=== PATIENT | male | born 1965 | race Caucasian/White ===

== ENCOUNTER 2019-06-15 16:47 | Emergency (ER) | payer MEDICAID ==
[~2019-06-15] VITALS: Ht 182.9 cm; Wt 80.0 kg
[2019-06-15] MEDS ORDERED: LISI-604 PO (18:04)
[2019-06-15] MEDS ORDERED: TRAM150C25 MT (18:04)
[2019-06-15] MEDS ORDERED: KEPP500 PO (18:04)
[2019-06-16] MEDS ORDERED: HALOPERIDOL LACTATE 5MG/ML VIAL IM ONE (00:30)
[2019-06-16 06:03] VITALS: BP 145/85
== END 2019-06-16 07:03 | disposition home or self-care (01) ==
LOC: ER 16:47
DX: F10.229 Alcohol dependence with intoxication, unspecified (principal); G40.909 Epilepsy, unspecified, not intractable, without status epilepticus; I10 Essential (primary) hypertension; Y90.8 Blood alcohol level of 240 mg/100 ml or more; W07.XXXA Fall from chair, initial encounter; Y93.89 Activity, other specified; Y92.89 Other specified places as the place of occurrence of the external cause; Y99.8 Other external cause status
CPT/HCPCS: 36415; 80320; 96372; 99283; J1630; G0480

== ENCOUNTER 2019-06-16 09:58 | Emergency (ER) | payer MEDICAID ==
[~2019-06-16] VITALS: Ht 175.3 cm; Wt 90.0 kg
[~2019-06-16 09:58] MED LIST: KEPP500 PO; LISI-604 PO; TRAM150C25 MT
[2019-06-16] MEDS ORDERED: SODIUM CHLORIDE 0.9% 1,000 ML IV ONE (12:33)
[2019-06-16 13:08] LABS: BASOPHILS % 1.4 % (0.0-2.0); EOSINOPHILS % 0.2 % (0.0-5.0); HEMATOCRIT. 37.5 % (42.0-52.0); HEMOGLOBIN. 12.2 g/dL (14.0-18.0); LYMPHOCYTES % 24.7 % (20.0-50.0); MEAN CORPUSCULAR HEMOGLOBIN 28.1 pg (28.0-32.0); MEAN CORPUSCULAR VOLUME 86.7 fL (80.0-94.0); MEAN PLATELET VOLUME 7.3 fl (7.4-10.4); MONOCYTES % 7.6 % (2.0-8.0); NEUTROPHILS % 66.1 % (40.0-76.0); PLATELET 222 x1000/uL (130-400); RED BLOOD CELL COUNT 4.32 mill/uL (4.7-6.1); RED CELL DISTRIBUTION WIDTH 17.7 % (11.6-14.6)
[2019-06-16 13:15] LABS: CHLORIDE 106 mEq/L (98-107)
[2019-06-16 13:34] LABS: ETHANOL BLOOD 464 mg/dL
[2019-06-16 16:17] LABS: *AMPHETAMINES SCREEN URINE NEGATIVE (NEGATIVE); *BARBITURATES SCREEN URINE NEGATIVE (NEGATIVE); *BENZODIAZEPINES SCREEN URINE PRESUMTIVE POSITIVE (NEGATIVE); *COCAINE SCREEN URINE NEGATIVE (NEGATIVE); METHADONE URINE SCREEN NEGATIVE (NEGATIVE)
[2019-06-16 16:18] LABS: CANNABINOID URINE SCREEN NEGATIVE (NEGATIVE); OPIATES URINE SCREEN NEGATIVE (NEGATIVE); PHENCYCLIDINE URINE SCREEN NEGATIVE (NEGATIVE)
[2019-06-17 06:27] VITALS: BP 132/81
== END 2019-06-17 06:30 | disposition home or self-care (01) ==
LOC: ER 09:58
DX: F10.229 Alcohol dependence with intoxication, unspecified (principal); Y90.8 Blood alcohol level of 240 mg/100 ml or more; Z79.899 Other long term (current) drug therapy
CPT/HCPCS: 36415; 70450; 80053; 80305; 80320; 85025; 96360; 96361; 99284; J7030; G0480

== ENCOUNTER 2019-08-15 21:21 | Emergency (ER) | payer MEDICAID ==
[~2019-08-15] VITALS: Ht 177.8 cm; Wt 77.0 kg
[2019-08-15] MEDS ORDERED: LORAZEPAM 2MG/ML CPJ IV ONE (23:15)
[2019-08-15] MEDS ORDERED: FOLIC ACID 1 MG, THIAMINE HCL 100 MG, MVI, ADULT NO.1 10 ML in DEXTROSE 5% WATER 1,000 ML IV ONE ×4 (23:15)
[2019-08-15] MEDS: LEVETIRACETAM 500MG PREMIX 100 ML IV ONE ×2 (23:25→23:36)
[2019-08-15] MEDS: ONDANSETRON HCL 4MG/2ML INJ IV STA ×2 (23:25→23:36)
[2019-08-15] MEDS: LORAZEPAM 2MG/ML CPJ IV STA ×2 (23:25→23:36)
[2019-08-15] MEDS: SODIUM CHLORIDE 0.9% 1,000 ML IV ONE ×2 (23:26→23:36)
[2019-08-15 23:52] LABS: BASOPHILS % 1.8 % (0.0-2.0); EOSINOPHILS % 1.6 % (0.0-5.0); HEMATOCRIT. 39.5 % (42.0-52.0); HEMOGLOBIN. 12.2 g/dL (14.0-18.0); LYMPHOCYTES % 48.7 % (20.0-50.0); MEAN CORPUSCULAR VOLUME 83.9 fL (80.0-94.0); MEAN PLATELET VOLUME 7.8 fl (7.4-10.4); MONOCYTES % 14.5 % (2.0-8.0); NEUTROPHILS % 33.4 % (40.0-76.0); PLATELET 208 x1000/uL (130-400); RED BLOOD CELL COUNT 4.71 mill/uL (4.7-6.1)
[2019-08-15 23:54] LABS: CHLORIDE 109 mEq/L (98-107)
[2019-08-16 00:03] LABS: CREATINE KINASE 379 IU/L (39-308)
[2019-08-16 00:20] LABS: ETHANOL BLOOD 505 mg/dL
[2019-08-16 01:43] LABS: *AMPHETAMINES SCREEN URINE NEGATIVE (NEGATIVE); *BARBITURATES SCREEN URINE NEGATIVE (NEGATIVE); *BENZODIAZEPINES SCREEN URINE PRESUMTIVE POSITIVE (NEGATIVE); *COCAINE SCREEN URINE NEGATIVE (NEGATIVE)
[2019-08-16 01:44] LABS: CANNABINOID URINE SCREEN NEGATIVE (NEGATIVE); METHADONE URINE SCREEN NEGATIVE (NEGATIVE); OPIATES URINE SCREEN NEGATIVE (NEGATIVE); PHENCYCLIDINE URINE SCREEN NEGATIVE (NEGATIVE)
[2019-08-16 02:10] LABS: CLARITY URINE CLEAR (CLEAR); COLOR URINE YELLOW (YELLOW); KETONES URINE NEGATIVE (NEGATIVE); LEUKOCYTE ESTERASE URINE 1+ (NEGATIVE); NITRITE URINE NEGATIVE (NEGATIVE); OCCULT BLOOD URINE 1+ (NEGATIVE); PH URINE 7.5 (4.5-8.0); PROTEIN URINE NEGATIVE (NEGATIVE); SPECIFIC GRAVITY URINE 1.004 (1.005-1.030); UROBILINOGEN URINE 0.2 E.U./dL (0.2-1.0)
[2019-08-16 12:02] VITALS: BP 139/87
== END 2019-08-16 12:03 | disposition home or self-care (01) ==
LOC: ER 21:21
DX: T51.0X1A Toxic effect of ethanol, accidental (unintentional), initial encounter (principal); G92 Toxic encephalopathy; Y92.89 Other specified places as the place of occurrence of the external cause; Z91.19 Patient's noncompliance with other medical treatment and regimen; I10 Essential (primary) hypertension; Z98.890 Other specified postprocedural states; Z79.899 Other long term (current) drug therapy
CPT/HCPCS: 36415; 80053; 80305; 80307; 80320; 80329; 81003; 82550; 84443; 85025; 93005; 96365; 96366; 96367; 96375; 99284; J1953; J2060; J2405; J3411; J3490; J7030; J7070; G0480

== ENCOUNTER 2019-08-16 20:23 | Inpatient (IN) | payer MEDICAID ==
[~2019-08-16] VITALS: Ht 172.7 cm; Wt 75.4 kg
[2019-08-16] MEDS ORDERED: SODIUM CHLORIDE 0.9% 1,000 ML IV ONE (22:20)
[2019-08-17 00:52] LABS: BASOPHILS % 3.2 % (0.0-2.0); EOSINOPHILS % 1.8 % (0.0-5.0); LYMPHOCYTES % 43.8 % (20.0-50.0); MEAN CORPUSCULAR HEMOGLOBIN 26.2 pg (28.0-32.0); MEAN CORPUSCULAR VOLUME 83.4 fL (80.0-94.0); MEAN PLATELET VOLUME 7.4 fl (7.4-10.4); MONOCYTES % 9.7 % (2.0-8.0); NEUTROPHILS % 41.5 % (40.0-76.0); PLATELET 172 x1000/uL (130-400); RED BLOOD CELL COUNT 4.19 mill/uL (4.7-6.1); RED CELL DISTRIBUTION WIDTH 20.6 % (11.6-14.6)
[2019-08-17 01:03] LABS: CHLORIDE 111 mEq/L (98-107)
[2019-08-17 01:24] LABS: ETHANOL BLOOD 393 mg/dL
[2019-08-17 03:12] LABS: CLARITY URINE CLEAR (CLEAR); COLOR URINE YELLOW (YELLOW); KETONES URINE NEGATIVE (NEGATIVE); LEUKOCYTE ESTERASE URINE 3+ (NEGATIVE); NITRITE URINE NEGATIVE (NEGATIVE); OCCULT BLOOD URINE 2+ (NEGATIVE); PROTEIN URINE TRACE (NEGATIVE); SPECIFIC GRAVITY URINE 1.007 (1.005-1.030); UROBILINOGEN URINE 0.2 E.U./dL (0.2-1.0)
[2019-08-17 03:43] LABS: *AMPHETAMINES SCREEN URINE NEGATIVE (NEGATIVE); *BARBITURATES SCREEN URINE NEGATIVE (NEGATIVE); *BENZODIAZEPINES SCREEN URINE PRESUMTIVE POSITIVE (NEGATIVE); *COCAINE SCREEN URINE NEGATIVE (NEGATIVE)
[2019-08-17 03:44] LABS: CANNABINOID URINE SCREEN NEGATIVE (NEGATIVE); METHADONE URINE SCREEN NEGATIVE (NEGATIVE); OPIATES URINE SCREEN NEGATIVE (NEGATIVE); PHENCYCLIDINE URINE SCREEN NEGATIVE (NEGATIVE)
[2019-08-17] MEDS ORDERED: SODIUM CHLORIDE 0.9% 1,000 ML IV ONE (04:04)
[2019-08-17] MEDS ORDERED: CHLORDIAZEPOXIDE 25MG CAPSULE PO ONE ×2 (08:15→11:45)
[2019-08-17] MEDS ORDERED: LORAZEPAM 1MG TABLET PO ONE (08:15)
[2019-08-17] MEDS ORDERED: FOLIC ACID 1 MG, THIAMINE HCL 100 MG, MVI, ADULT NO.1 10 ML in DEXTROSE 5% WATER 1,000 ML IV ONE ×4 (10:15)
[2019-08-17] MEDS ORDERED: LORAZEPAM 2MG/ML CPJ IV ONE ×2 (10:15→11:15)
[2019-08-17] MEDS ORDERED: LORAZEPAM 2MG/ML CPJ IM ONE (11:30)
[2019-08-17] MEDS ORDERED: CEFTRIAXONE 1 G PREMIX 50 ML IV ONE (12:00)
[2019-08-17] MEDS ORDERED: POTASSIUM CHLORIDE 20MEQ TABLET SR PO ONE (12:00)
[2019-08-17] MEDS ORDERED: ONDANSETRON HCL 4MG/2ML INJ IV ONE (12:45)
[2019-08-17] MEDS ORDERED: CLONIDINE 0.1MG TABLET PO PRN (19:00)
[2019-08-17] MEDS ORDERED: MAGNESIUM/ALUMINUM HYDROXIDE/SIMETHICONE 30ML UDC PO PRN (19:00)
[2019-08-17] MEDS ORDERED: DOCUSATE SODIUM 100MG CAPSULE PO PRN (19:00)
[2019-08-17] MEDS: LORAZEPAM 2MG/ML CPJ IV PRN (20:21)
[2019-08-17] MEDS: ONDANSETRON HCL 4MG/2ML INJ IV PRN (20:21)
[2019-08-18 04:00] VITALS: BP 145/90
[2019-08-18] MEDS: SODIUM CHLORIDE 0.45% 1,000 ML IV SCH ×2 (04:40→21:02)
[2019-08-18] MEDS: ONDANSETRON HCL 4MG/2ML INJ IV PRN ×3 (04:41→19:44)
[2019-08-18] MEDS: LORAZEPAM 2MG/ML CPJ IV PRN ×3 (04:42→19:44)
[2019-08-18] MEDS ORDERED: GABA-531 MT (06:11)
[2019-08-18] MEDS ORDERED: ATEN50TA MT (06:12)
[2019-08-18] MEDS: CHLORDIAZEPOXIDE 25MG CAPSULE PO SCH ×3 (07:33→21:01)
[2019-08-18] MEDS: MULTIVITAMINS,THER W-MINERALS TABLET PO SCH (09:31)
[2019-08-18] MEDS: THIAMINE HCL 100MG TABLET PO SCH (09:31)
[2019-08-18 09:35] LABS: HEMATOCRIT. 34.8 % (42.0-52.0); HEMOGLOBIN. 11.2 g/dL (14.0-18.0); MEAN CORPUSCULAR HEMOGLOBIN 26.7 pg (28.0-32.0); MEAN CORPUSCULAR VOLUME 82.4 fL (80.0-94.0); PLATELET 134 x1000/uL (130-400); RED BLOOD CELL COUNT 4.22 mill/uL (4.7-6.1); RED CELL DISTRIBUTION WIDTH 20.1 % (11.6-14.6)
[2019-08-18 10:33] LABS: CHLORIDE 104 mEq/L (98-107)
[2019-08-18 12:12] LABS: PLATELET ESTIMATE NORMAL
[2019-08-18 12:20] VITALS: BP 129/83
[2019-08-18] MEDS ORDERED: POTASSIUM CHLORIDE 20MEQ TABLET SR PO NR (12:45)
[2019-08-18] MEDS: NITROFURANTOIN 100MG M/M CAPSULE PO SCH ×2 (13:03→21:02)
[2019-08-18] MEDS: ATENOLOL 50 MG TABLET PO SCH ×2 (13:04→21:02)
[2019-08-18] MEDS: GABAPENTIN 300MG CAPSULE PO SCH ×2 (13:04→21:01)
[2019-08-18] MEDS: ACETAMINOPHEN 325MG TABLET PO PRN (15:27)
[2019-08-18 16:00] VITALS: BP 153/100
[2019-08-18 20:09] VITALS: BP 133/96
[2019-08-18] MEDS: LEVETIRACETAM 500MG TABLET PO SCH (21:01)
[2019-08-19 00:31] VITALS: BP 140/91
[2019-08-19 04:00] VITALS: BP 138/62
[2019-08-19] MEDS: GABAPENTIN 300MG CAPSULE PO SCH ×3 (06:33→21:07)
[2019-08-19] MEDS: CHLORDIAZEPOXIDE 25MG CAPSULE PO SCH ×3 (06:33→21:08)
[2019-08-19 08:00] VITALS: BP 118/86
[2019-08-19] MEDS: NITROFURANTOIN 100MG M/M CAPSULE PO SCH ×2 (08:40→21:07)
[2019-08-19] MEDS: ATENOLOL 50 MG TABLET PO SCH ×2 (08:40→21:08)
[2019-08-19] MEDS: THIAMINE HCL 100MG TABLET PO SCH (08:40)
[2019-08-19] MEDS: LEVETIRACETAM 500MG TABLET PO SCH ×2 (08:40→21:07)
[2019-08-19] MEDS: MULTIVITAMINS,THER W-MINERALS TABLET PO SCH (08:40)
[2019-08-19] MEDS: ACETAMINOPHEN 325MG TABLET PO PRN ×2 (10:11→16:28)
[2019-08-19] MEDS ORDERED: KETOROLAC 15MG/ML VIAL IV PRN (11:00)
[2019-08-19] MEDS: LORAZEPAM 2MG/ML CPJ IV PRN ×3 (13:14→22:04)
[2019-08-19] MEDS: ONDANSETRON HCL 4MG/2ML INJ IV PRN ×2 (13:14→22:10)
[2019-08-19] MEDS: SODIUM CHLORIDE 0.45% 1,000 ML IV SCH (15:45)
[2019-08-19 16:00] VITALS: BP 132/86
[2019-08-19 20:00] VITALS: BP 125/80
[2019-08-19] MEDS: ZOLPIDEM TARTRATE 5MG TABLET PO PRN (21:08)
[2019-08-20] VITALS: BP 144/86
[2019-08-20] MEDS: LORAZEPAM 2MG/ML CPJ IV PRN ×4 (02:07→22:12)
[2019-08-20 04:00] VITALS: BP 110/70
[2019-08-20] MEDS: SODIUM CHLORIDE 0.45% 1,000 ML IV SCH ×2 (06:26→23:22)
[2019-08-20] MEDS: CHLORDIAZEPOXIDE 25MG CAPSULE PO SCH ×3 (06:27→21:20)
[2019-08-20] MEDS: GABAPENTIN 300MG CAPSULE PO SCH ×3 (06:27→21:20)
[2019-08-20 08:13] VITALS: BP 125/85
[2019-08-20] MEDS: MULTIVITAMINS,THER W-MINERALS TABLET PO SCH (08:59)
[2019-08-20] MEDS: THIAMINE HCL 100MG TABLET PO SCH (08:59)
[2019-08-20] MEDS: NITROFURANTOIN 100MG M/M CAPSULE PO SCH ×2 (08:59→21:20)
[2019-08-20] MEDS: LEVETIRACETAM 500MG TABLET PO SCH ×2 (08:59→21:20)
[2019-08-20] MEDS: ATENOLOL 50 MG TABLET PO SCH ×2 (09:00→21:20)
[2019-08-20 10:40] LABS: BASOPHILS % 2.1 % (0.0-2.0); EOSINOPHILS % 3.6 % (0.0-5.0); HEMATOCRIT. 35.1 % (42.0-52.0); HEMOGLOBIN. 11.6 g/dL (14.0-18.0); LYMPHOCYTES % 27.6 % (20.0-50.0); MEAN CORPUSCULAR HEMOGLOBIN 27.7 pg (28.0-32.0); MEAN CORPUSCULAR VOLUME 83.5 fL (80.0-94.0); MEAN PLATELET VOLUME 8.2 fl (7.4-10.4); MONOCYTES % 13.8 % (2.0-8.0); NEUTROPHILS % 52.9 % (40.0-76.0); PLATELET 129 x1000/uL (130-400); RED BLOOD CELL COUNT 4.21 mill/uL (4.7-6.1); RED CELL DISTRIBUTION WIDTH 19.8 % (11.6-14.6)
[2019-08-20 10:48] LABS: CHLORIDE 105 mEq/L (98-107)
[2019-08-20 12:00] VITALS: BP 124/80
[2019-08-20 16:00] VITALS: BP 130/78
[2019-08-20 20:00] VITALS: BP 124/81
[2019-08-20] MEDS: ACETAMINOPHEN 325MG TABLET PO PRN (21:23)
[2019-08-20] MEDS: ONDANSETRON HCL 4MG/2ML INJ IV PRN (22:12)
[2019-08-20] MEDS: ZOLPIDEM TARTRATE 5MG TABLET PO PRN (23:21)
[2019-08-21] VITALS: BP 108/76
[2019-08-21 04:00] VITALS: BP 108/78
[2019-08-21] MEDS: GABAPENTIN 300MG CAPSULE PO SCH ×3 (06:01→21:18)
[2019-08-21] MEDS: CHLORDIAZEPOXIDE 25MG CAPSULE PO SCH ×3 (06:01→21:18)
[2019-08-21] MEDS: ACETAMINOPHEN 325MG TABLET PO PRN ×2 (06:01→17:03)
[2019-08-21 08:00] VITALS: BP 124/76
[2019-08-21] MEDS: NITROFURANTOIN 100MG M/M CAPSULE PO SCH ×2 (09:28→21:18)
[2019-08-21] MEDS: THIAMINE HCL 100MG TABLET PO SCH (09:29)
[2019-08-21] MEDS: LEVETIRACETAM 500MG TABLET PO SCH ×2 (09:29→21:18)
[2019-08-21] MEDS: ATENOLOL 50 MG TABLET PO SCH ×2 (09:30→21:19)
[2019-08-21] MEDS: MULTIVITAMINS,THER W-MINERALS TABLET PO SCH (09:30)
[2019-08-21] MEDS: LORAZEPAM 2MG/ML CPJ IV PRN ×3 (09:30→21:19)
[2019-08-21] MEDS: ONDANSETRON HCL 4MG/2ML INJ IV PRN ×3 (09:53→23:44)
[2019-08-21 12:00] VITALS: BP 132/79
[2019-08-21 16:00] VITALS: BP 113/65
[2019-08-21] MEDS: SODIUM CHLORIDE 0.45% 1,000 ML IV SCH (16:49)
[2019-08-21 20:00] VITALS: BP 139/80
[2019-08-22] VITALS: BP 155/91
[2019-08-22] MEDS: ZOLPIDEM TARTRATE 5MG TABLET PO PRN (02:37)
[2019-08-22 04:00] VITALS: BP 106/62
[2019-08-22] MEDS: CHLORDIAZEPOXIDE 25MG CAPSULE PO SCH (07:01)
[2019-08-22] MEDS: GABAPENTIN 300MG CAPSULE PO SCH (07:01)
[2019-08-22] MEDS: SODIUM CHLORIDE 0.45% 1,000 ML IV SCH (07:01)
[2019-08-22] MEDS: LORAZEPAM 2MG/ML CPJ IV PRN (07:02)
[2019-08-22] MEDS: ACETAMINOPHEN 325MG TABLET PO PRN (08:46)
[2019-08-22 08:51] VITALS: BP 123/85
[2019-08-22] MEDS: THIAMINE HCL 100MG TABLET PO SCH (09:03)
[2019-08-22] MEDS: NITROFURANTOIN 100MG M/M CAPSULE PO SCH (09:03)
[2019-08-22] MEDS: MULTIVITAMINS,THER W-MINERALS TABLET PO SCH (09:03)
[2019-08-22] MEDS: ATENOLOL 50 MG TABLET PO SCH (09:04)
[2019-08-22] MEDS: LEVETIRACETAM 500MG TABLET PO SCH (09:06)
[2019-08-22] MEDS: ONDANSETRON HCL 4MG/2ML INJ IV PRN (09:21)
[2019-08-22 10:29] VITALS: BP 123/85
== END 2019-08-22 12:30 | disposition home or self-care (01) | DRG 775 ==
LOC: ER 20:23 → 6WST 08-17 11:42 → CANRESERV 08-17 22:18 → ENRESERV 08-17 22:18
PROVIDERS: ADMIT Hospitalist; ATTEND Hospitalist
DX: F10.239 Alcohol dependence with withdrawal, unspecified (principal); E83.51 Hypocalcemia; G40.909 Epilepsy, unspecified, not intractable, without status epilepticus; I10 Essential (primary) hypertension; Y90.8 Blood alcohol level of 240 mg/100 ml or more; N39.0 Urinary tract infection, site not specified; Z59.0 Homelessness; Z79.899 Other long term (current) drug therapy
CPT/HCPCS: 36415; 80053; 80305; 80307; 80320; 80329; 81003; 85025; 93005; 93970; 97162; 99284; 99285; J0696; J2060; J2405; J3411; J3490; J7030; J7070; G0480

== ENCOUNTER 2022-01-05 19:47 | Emergency (ER) | payer MEDICAID, OTHER ==
[~2022-01-05] VITALS: Ht 172.7 cm; Wt 76.0 kg
[~2022-01-05 19:47] MED LIST changes: +ATEN50TA MT; +GABA-532 MT; -LISI-604 PO; +LISI20TA31 PO
[2022-01-05 20:40] VITALS: BP 139/99
[2022-01-05] MEDS ORDERED: GABA-533 MT (22:36)
[2022-01-05] MEDS ORDERED: IBUP-2029 MT (22:36)
[2022-01-05] MEDS ORDERED: GABAPENTIN 400MG CAPSULE PO ONE (22:45)
[2022-01-06] MEDS ORDERED: GABA-290 MT (12:41)
[2022-01-06] MEDS ORDERED: MENT4ADH6 TP (12:41)
== END 2022-01-06 00:01 | disposition home or self-care (01) ==
LOC: ER 19:58
DX: Z76.0 Encounter for issue of repeat prescription (principal); F10.20 Alcohol dependence, uncomplicated; R45.1 Restlessness and agitation; I10 Essential (primary) hypertension; Y90.9 Presence of alcohol in blood, level not specified
CPT/HCPCS: 99283

== ENCOUNTER 2022-01-06 03:00 | Emergency (ER) | payer OTHER ==
[~2022-01-06 03:00] MED LIST changes: +GABA-533 MT; +IBUP-2029 MT
[2022-01-06] MEDS ORDERED: GABA-290 MT (12:41)
[2022-01-06] MEDS ORDERED: MENT4ADH6 TP (12:41)
== END 2022-01-06 03:20 | disposition left against medical advice (07) ==
LOC: ER 03:00
DX: Z53.21 Procedure and treatment not carried out due to patient leaving prior to being seen by health care provider (principal)

== ENCOUNTER 2022-01-06 12:08 | Emergency (ER) | payer OTHER ==
[~2022-01-06] VITALS: Ht 167.6 cm; Wt 75.0 kg
[2022-01-06] MEDS ORDERED: GABA-290 MT (12:41)
[2022-01-06] MEDS ORDERED: MENT4ADH6 TP (12:41)
[2022-01-06 12:57] VITALS: BP 134/81
== END 2022-01-06 13:00 | disposition home or self-care (01) ==
LOC: ER 12:08
DX: G62.9 Polyneuropathy, unspecified (principal); F10.20 Alcohol dependence, uncomplicated; I10 Essential (primary) hypertension; Z76.0 Encounter for issue of repeat prescription; Z86.59 Personal history of other mental and behavioral disorders; Y90.9 Presence of alcohol in blood, level not specified
CPT/HCPCS: 99281; 99283

== ENCOUNTER 2022-01-09 20:09 | Emergency (ER) | payer OTHER ==
[~2022-01-09] VITALS: Ht 177.8 cm; Wt 75.0 kg
[~2022-01-09 20:09] MED LIST changes: +GABA-290 MT; +MENT4ADH6 TP
[2022-01-10 01:50] VITALS: BP 144/78
[2022-01-10] MEDS ORDERED: CYCL5TAB MT (10:46)
[2022-01-10] MEDS ORDERED: KEPP500 PO (10:46)
[2022-01-10] MEDS ORDERED: L25 MT (10:46)
[2022-01-11] MEDS ORDERED: GABA-532 MT (12:16)
== END 2022-01-10 01:50 | disposition home or self-care (01) ==
LOC: ER 20:09
DX: F10.229 Alcohol dependence with intoxication, unspecified (principal); Y90.0 Blood alcohol level of less than 20 mg/100 ml; I10 Essential (primary) hypertension; Z79.899 Other long term (current) drug therapy
CPT/HCPCS: 99283

== ENCOUNTER 2022-01-10 09:15 | Emergency (ER) | payer OTHER ==
[~2022-01-10] VITALS: Ht 177.8 cm; Wt 75.0 kg
[2022-01-10] MEDS ORDERED: CYCL5TAB MT (10:46)
[2022-01-10] MEDS ORDERED: L25 MT (10:46)
[2022-01-10] MEDS ORDERED: KEPP500 PO (10:46)
[2022-01-10 15:29] VITALS: BP 128/89
[2022-01-11] MEDS ORDERED: GABA-532 MT (12:16)
== END 2022-01-10 15:31 | disposition home or self-care (01) ==
LOC: ER 09:52
DX: F10.229 Alcohol dependence with intoxication, unspecified (principal); Y90.0 Blood alcohol level of less than 20 mg/100 ml; I10 Essential (primary) hypertension; Z79.899 Other long term (current) drug therapy; Z59.00 Homelessness unspecified
CPT/HCPCS: 99283

== ENCOUNTER 2022-01-10 19:24 | Emergency (ER) | payer OTHER ==
[~2022-01-10] VITALS: Ht 177.8 cm; Wt 75.0 kg
[~2022-01-10 19:24] MED LIST changes: +CYCL5TAB MT; +L25 MT
[2022-01-10 21:19] VITALS: BP 151/104
[2022-01-11] MEDS ORDERED: GABA-532 MT (12:16)
== END 2022-01-10 22:34 | disposition left against medical advice (07) ==
LOC: ER 19:24
DX: Z53.21 Procedure and treatment not carried out due to patient leaving prior to being seen by health care provider (principal)
CPT/HCPCS: 99281

== ENCOUNTER 2022-01-11 10:10 | Emergency (ER) | payer OTHER ==
[~2022-01-11] VITALS: Ht 165.1 cm; Wt 59.0 kg
[2022-01-11 10:27] VITALS: BP 121/79
[2022-01-11] MEDS ORDERED: GABA-532 MT (12:16)
== END 2022-01-11 12:40 | disposition home or self-care (01) ==
LOC: ER 10:10
DX: Z76.0 Encounter for issue of repeat prescription (principal); M54.30 Sciatica, unspecified side; I10 Essential (primary) hypertension; G40.909 Epilepsy, unspecified, not intractable, without status epilepticus
CPT/HCPCS: 99283

== ENCOUNTER 2022-01-11 20:28 | Emergency (ER) | payer OTHER ==
[~2022-01-11] VITALS: Ht 175.3 cm; Wt 78.0 kg
[2022-01-11] MEDS ORDERED: IBUPROFEN 400MG TABLET PO ONE (23:00)
[2022-01-11] MEDS ORDERED: ONDANSETRON 4MG ODT PO ONE (23:00)
[2022-01-12 02:41] VITALS: BP 122/78
== END 2022-01-12 02:41 | disposition home or self-care (01) ==
LOC: ER 20:28
DX: F10.229 Alcohol dependence with intoxication, unspecified (principal); M54.50 Low back pain, unspecified; I10 Essential (primary) hypertension; M54.30 Sciatica, unspecified side; G40.909 Epilepsy, unspecified, not intractable, without status epilepticus; Y90.9 Presence of alcohol in blood, level not specified
CPT/HCPCS: 99283; Q0162

== ENCOUNTER 2022-01-22 05:39 | Emergency (ER) | payer OTHER ==
[~2022-01-22] VITALS: Ht 170.2 cm; Wt 82.0 kg
[2022-01-22 05:41] VITALS: BP 152/84
[2022-01-22] MEDS ORDERED: CHLORDIAZEPOXIDE 25MG CAPSULE PO ONE (06:00)
[2022-01-22] MEDS ORDERED: ONDANSETRON HCL 4MG TABLET PO ONE (06:15)
[2022-01-22] MEDS ORDERED: ONDA4TAB50 PO (06:16)
== END 2022-01-22 06:46 | disposition home or self-care (01) ==
LOC: ER 05:39
DX: F10.239 Alcohol dependence with withdrawal, unspecified (principal); Y90.9 Presence of alcohol in blood, level not specified; T68.XXXA Hypothermia, initial encounter; I10 Essential (primary) hypertension; X58.XXXA Exposure to other specified factors, initial encounter; Y93.9 Activity, unspecified; Y92.521 Bus station as the place of occurrence of the external cause
CPT/HCPCS: 99283; Q0162

== ENCOUNTER 2022-01-22 13:32 | Emergency (ER) | payer OTHER ==
[~2022-01-22] VITALS: Ht 175.3 cm; Wt 80.0 kg
[~2022-01-22 13:32] MED LIST changes: +ONDA4TAB50 PO
[2022-01-22 16:16] LABS: CHLORIDE 107 mEq/L (98-107)
[2022-01-22 16:32] LABS: ETHANOL BLOOD 300 mg/dL
[2022-01-22] MEDS ORDERED: CHLORDIAZEPOXIDE 25MG CAPSULE PO ONE (17:15)
[2022-01-22 18:05] LABS: *AMPHETAMINES SCREEN URINE NEGATIVE (NEGATIVE); *BARBITURATES SCREEN URINE NEGATIVE (NEGATIVE); *BENZODIAZEPINES SCREEN URINE PRESUMTIVE POSITIVE (NEGATIVE); *COCAINE SCREEN URINE NEGATIVE (NEGATIVE); CANNABINOID URINE SCREEN NEGATIVE (NEGATIVE); METHADONE URINE SCREEN NEGATIVE (NEGATIVE); OPIATES URINE SCREEN NEGATIVE (NEGATIVE); PHENCYCLIDINE URINE SCREEN NEGATIVE (NEGATIVE)
[2022-01-22] MEDS ORDERED: CHLORDIAZEPOXIDE 25MG CAPSULE PO NR (18:30)
[2022-01-22 18:41] LABS: BASOPHILS % 2.8 % (0.0-2.0); EOSINOPHILS % 1.4 % (0.0-5.0); HEMATOCRIT. 40.5 % (42.0-52.0); HEMOGLOBIN. 13.5 g/dL (14.0-18.0); LYMPHOCYTES % 44.2 % (20.0-50.0); MEAN CORPUSCULAR HEMOGLOBIN 32.7 pg (28.0-32.0); MEAN CORPUSCULAR VOLUME 98.3 fL (80.0-94.0); MEAN PLATELET VOLUME 8.3 fl (7.4-10.4); MONOCYTES % 11.8 % (2.0-8.0); NEUTROPHILS % 39.8 % (40.0-76.0); PLATELET 109 x1000/uL (130-400); RED BLOOD CELL COUNT 4.12 mill/uL (4.7-6.1); RED CELL DISTRIBUTION WIDTH 13.7 % (11.6-14.6)
[2022-01-22 21:49] VITALS: BP 107/66
== END 2022-01-22 21:53 | disposition home or self-care (01) ==
LOC: ER 13:40
DX: T51.0X1A Toxic effect of ethanol, accidental (unintentional), initial encounter (principal); R41.82 Altered mental status, unspecified; Y92.480 Sidewalk as the place of occurrence of the external cause; F10.229 Alcohol dependence with intoxication, unspecified; Y90.8 Blood alcohol level of 240 mg/100 ml or more; I10 Essential (primary) hypertension
CPT/HCPCS: 36415; 80053; 80305; 80320; 85025; 93005; 99284; G0480

== ENCOUNTER 2022-02-16 21:49 | Emergency (ER) | payer OTHER ==
[~2022-02-16] VITALS: Ht 175.3 cm; Wt 75.0 kg
[2022-02-17 02:58] VITALS: BP 102/66
== END 2022-02-17 03:57 | disposition home or self-care (01) ==
LOC: ER 21:49
DX: F10.229 Alcohol dependence with intoxication, unspecified (principal); Y90.9 Presence of alcohol in blood, level not specified
CPT/HCPCS: 99283

== ENCOUNTER 2022-03-21 11:57 | Emergency (ER) | payer OTHER ==
[~2022-03-21] VITALS: Ht 170.2 cm; Wt 90.0 kg
[2022-03-21 11:59] VITALS: BP 150/88
== END 2022-03-22 | disposition left against medical advice (07) ==
LOC: ER 12:39
DX: Z53.21 Procedure and treatment not carried out due to patient leaving prior to being seen by health care provider (principal)

== ENCOUNTER 2022-05-18 17:01 | Inpatient (IN) | payer OTHER ==
[~2022-05-18] VITALS: Ht 172.7 cm; Wt 70.3 kg
[2022-05-18] MEDS ORDERED: LORAZEPAM 2MG/ML CPJ IV STA (18:32)
[2022-05-18] MEDS ORDERED: FOLIC ACID 1 MG, THIAMINE HCL 100 MG, MVI, ADULT NO.1 10 ML in DEXTROSE 5% WATER 1,000 ML IV ONE ×4 (18:45)
[2022-05-18 19:19] LABS: BASOPHILS % 2.9 % (0.0-2.0); EOSINOPHILS % 1.3 % (0.0-5.0); HEMATOCRIT. 37.7 % (42.0-52.0); HEMOGLOBIN. 12.5 g/dL (14.0-18.0); LYMPHOCYTES % 45.4 % (20.0-50.0); MEAN CORPUSCULAR HEMOGLOBIN 31.7 pg (28.0-32.0); MEAN CORPUSCULAR VOLUME 95.8 fL (80.0-94.0); MEAN PLATELET VOLUME 7.6 fl (7.4-10.4); NEUTROPHILS % 36.4 % (40.0-76.0); PLATELET 119 x1000/uL (130-400); RED BLOOD CELL COUNT 3.93 mill/uL (4.7-6.1); RED CELL DISTRIBUTION WIDTH 14.5 % (11.6-14.6)
[2022-05-18 19:50] LABS: CHLORIDE 94 mEq/L (98-107)
[2022-05-18 19:52] LABS: ETHANOL BLOOD 454 mg/dL
[2022-05-19] VITALS (7 sets, daily range): BP systolic 114–149; BP diastolic 80–97
[2022-05-19] MEDS ORDERED: POTASSIUM CHLORIDE 20MEQ TABLET SR PO NR (01:45)
[2022-05-19] MEDS: LORAZEPAM 2MG/ML CPJ IM PRN ×4 (02:12→21:02)
[2022-05-19] MEDS ORDERED: NALOXONE HCL 0.4MG/ML VIAL IV PRN (02:15)
[2022-05-19] MEDS: GABAPENTIN 300MG CAPSULE PO SCH ×3 (06:26→21:02)
[2022-05-19 06:58] LABS: CHLORIDE 99 mEq/L (98-107)
[2022-05-19] MEDS: FOLIC ACID 1MG TABLET PO SCH (09:12)
[2022-05-19] MEDS: THIAMINE HCL 100MG TABLET PO SCH (09:12)
[2022-05-19] MEDS: MULTIVITAMINS,THER W-MINERALS TABLET PO SCH (09:12)
[2022-05-19] MEDS: LEVETIRACETAM 500MG/5ML CUP PO SCH ×2 (09:12→21:02)
[2022-05-19] MEDS: CHLORDIAZEPOXIDE 25MG CAPSULE PO SCH ×2 (09:12→16:52)
[2022-05-19] MEDS: ATENOLOL 25MG TABLET PO SCH ×2 (09:20→21:03)
[2022-05-19] MEDS ORDERED: MAGNESIUM/ALUMINUM HYDROXIDE/SIMETHICONE 30ML UDC PO PRN (10:00)
[2022-05-19] MEDS ORDERED: CLONIDINE 0.1MG TABLET PO PRN (10:00)
[2022-05-19] MEDS ORDERED: ACETAMINOPHEN 325MG TABLET PO PRN (10:00)
[2022-05-19] MEDS: ENOXAPARIN 40MG/0.4ML SYR SUBCUT SCH (11:41)
[2022-05-19] MEDS: ONDANSETRON HCL 4MG/2ML INJ IV PRN (15:29)
[2022-05-19] MEDS: HYDROCODONE/ACETAMINOPHEN 10/325MG TABLET PO PRN ×2 (16:52→21:03)
[2022-05-19] MEDS: LACTULOSE 20G/30ML UDC PO SCH (21:03)
[2022-05-20] VITALS: BP 147/76
[2022-05-20 04:00] VITALS: BP 152/87
[2022-05-20] MEDS: LORAZEPAM 2MG/ML CPJ IM PRN ×3 (05:01→17:22)
[2022-05-20] MEDS: HYDROCODONE/ACETAMINOPHEN 10/325MG TABLET PO PRN ×3 (05:01→18:15)
[2022-05-20] MEDS: GABAPENTIN 300MG CAPSULE PO SCH ×3 (05:01→21:00)
[2022-05-20] MEDS: LACTULOSE 20G/30ML UDC PO SCH ×3 (05:01→21:00)
[2022-05-20 06:41] LABS: HEMOGLOBIN. 12.5 g/dL (14.0-18.0); MEAN CORPUSCULAR HEMOGLOBIN 32.1 pg (28.0-32.0); MEAN CORPUSCULAR VOLUME 97.4 fL (80.0-94.0); MEAN PLATELET VOLUME 8.8 fl (7.4-10.4); PLATELET 110 x1000/uL (130-400); RED CELL DISTRIBUTION WIDTH 14.2 % (11.6-14.6)
[2022-05-20 07:48] LABS: CHLORIDE 97 mEq/L (98-107)
[2022-05-20 07:51] VITALS: BP 146/89
[2022-05-20 08:34] LABS: HDL CHOLESTEROL 85 mg/dL (40-59); LDL CHOLESTEROL 95 mg/dL (5-100); PHOSPHORUS 3.8 mg/dL (2.5-4.9)
[2022-05-20] MEDS ORDERED: PANTOPRAZOLE SODIUM 40 MG/VIAL IV SCH (09:00)
[2022-05-20] MEDS: ENOXAPARIN 40MG/0.4ML SYR SUBCUT SCH (09:01)
[2022-05-20] MEDS: FOLIC ACID 1MG TABLET PO SCH (09:02)
[2022-05-20] MEDS: THIAMINE HCL 100MG TABLET PO SCH (09:02)
[2022-05-20] MEDS: CHLORDIAZEPOXIDE 25MG CAPSULE PO SCH ×2 (09:02→16:10)
[2022-05-20] MEDS: ATENOLOL 25MG TABLET PO SCH ×2 (09:02→20:58)
[2022-05-20] MEDS: MULTIVITAMINS,THER W-MINERALS TABLET PO SCH (09:02)
[2022-05-20] MEDS: LEVETIRACETAM 500MG/5ML CUP PO SCH ×2 (09:02→20:31)
[2022-05-20 09:34] LABS: PLATELET ESTIMATE DECREASED
[2022-05-20] MEDS: ONDANSETRON HCL 4MG/2ML INJ IV PRN ×2 (10:52→17:22)
[2022-05-20 12:00] VITALS: BP 140/74
[2022-05-20 16:00] VITALS: BP 128/80
[2022-05-20 20:00] VITALS: BP 133/99
[2022-05-20] MEDS: ONDANSETRON HCL 4MG TABLET PO PRN (20:32)
[2022-05-20] MEDS: LORAZEPAM 1MG TABLET PO PRN (20:32)
[2022-05-20] MEDS: TRAZODONE HCL 50MG TABLET PO SCH (20:32)
[2022-05-21] VITALS: BP 127/87
[2022-05-21 04:00] VITALS: BP 145/91
[2022-05-21] MEDS: LACTULOSE 20G/30ML UDC PO SCH ×3 (05:51→21:22)
[2022-05-21] MEDS: GABAPENTIN 300MG CAPSULE PO SCH ×3 (05:51→21:22)
[2022-05-21 08:00] VITALS: BP 126/63
[2022-05-21] MEDS: MULTIVITAMINS,THER W-MINERALS TABLET PO SCH (08:18)
[2022-05-21] MEDS: THIAMINE HCL 100MG TABLET PO SCH (08:18)
[2022-05-21] MEDS: ENOXAPARIN 40MG/0.4ML SYR SUBCUT SCH (08:18)
[2022-05-21] MEDS: FOLIC ACID 1MG TABLET PO SCH (08:18)
[2022-05-21] MEDS: LEVETIRACETAM 500MG/5ML CUP PO SCH ×2 (08:18→21:22)
[2022-05-21] MEDS: CHLORDIAZEPOXIDE 25MG CAPSULE PO SCH ×2 (08:19→17:51)
[2022-05-21] MEDS: ATENOLOL 25MG TABLET PO SCH ×2 (08:21→21:22)
[2022-05-21] MEDS: PANTOPRAZOLE 40MG DR TABLET PO SCH (10:27)
[2022-05-21 12:00] VITALS: BP 128/74
[2022-05-21] MEDS ORDERED: L25 MT (12:23)
[2022-05-21] MEDS: HYDROCODONE/ACETAMINOPHEN 10/325MG TABLET PO PRN (13:00)
[2022-05-21] MEDS: ONDANSETRON HCL 4MG TABLET PO PRN (13:00)
[2022-05-21] MEDS: LORAZEPAM 1MG TABLET PO PRN (15:49)
[2022-05-21 16:00] VITALS: BP 118/84
[2022-05-21 16:56] LABS: HEMATOCRIT. 35.4 % (42.0-52.0); HEMOGLOBIN. 11.7 g/dL (14.0-18.0); MEAN CORPUSCULAR HEMOGLOBIN 32.1 pg (28.0-32.0); MEAN CORPUSCULAR VOLUME 97.2 fL (80.0-94.0); MEAN PLATELET VOLUME 8.5 fl (7.4-10.4); PLATELET 131 x1000/uL (130-400); RED BLOOD CELL COUNT 3.64 mill/uL (4.7-6.1); RED CELL DISTRIBUTION WIDTH 14.7 % (11.6-14.6)
[2022-05-21 18:22] LABS: PLATELET ESTIMATE NORMAL
[2022-05-21 18:28] LABS: CHLORIDE 99 mEq/L (98-107)
[2022-05-21 20:00] VITALS: BP 125/86
[2022-05-21] MEDS: TRAZODONE HCL 50MG TABLET PO SCH (21:22)
[2022-05-22] VITALS: BP 149/71
[2022-05-22 04:00] VITALS: BP 130/77
[2022-05-22] MEDS: LACTULOSE 20G/30ML UDC PO SCH ×2 (06:11→13:17)
[2022-05-22] MEDS: GABAPENTIN 300MG CAPSULE PO SCH ×2 (06:12→13:17)
[2022-05-22 08:04] VITALS: BP 152/98
[2022-05-22] MEDS: FOLIC ACID 1MG TABLET PO SCH (08:41)
[2022-05-22] MEDS: THIAMINE HCL 100MG TABLET PO SCH (08:41)
[2022-05-22] MEDS: PANTOPRAZOLE 40MG DR TABLET PO SCH (08:41)
[2022-05-22] MEDS: CHLORDIAZEPOXIDE 25MG CAPSULE PO SCH (08:41)
[2022-05-22] MEDS: ATENOLOL 25MG TABLET PO SCH (08:41)
[2022-05-22] MEDS: LEVETIRACETAM 500MG/5ML CUP PO SCH (08:41)
[2022-05-22] MEDS: MULTIVITAMINS,THER W-MINERALS TABLET PO SCH (08:41)
[2022-05-22] MEDS: ENOXAPARIN 40MG/0.4ML SYR SUBCUT SCH (08:42)
[2022-05-22] MEDS: HYDROCODONE/ACETAMINOPHEN 10/325MG TABLET PO PRN (11:53)
[2022-05-22 12:00] VITALS: BP 150/80
[2022-05-22] MEDS: LORAZEPAM 1MG TABLET PO PRN (14:48)
[2022-05-22] MEDS: ONDANSETRON HCL 4MG TABLET PO PRN (14:54)
[2022-05-22 15:01] VITALS: BP 142/70
== END 2022-05-22 16:35 | disposition home or self-care (01) | DRG 775 ==
LOC: ER 17:01 → 7EST 20:37 → ENRESERV 22:27
PROVIDERS: ADMIT Internal Medicine; ATTEND Internal Medicine
DX: F10.229 Alcohol dependence with intoxication, unspecified (principal); E44.0 Moderate protein-calorie malnutrition; K70.30 Alcoholic cirrhosis of liver without ascites; E87.6 Hypokalemia; G40.909 Epilepsy, unspecified, not intractable, without status epilepticus; I10 Essential (primary) hypertension; R74.01 Elevation of levels of liver transaminase levels; Z79.899 Other long term (current) drug therapy; Z68.23 Body mass index [BMI] 23.0-23.9, adult; Y90.8 Blood alcohol level of 240 mg/100 ml or more
CPT/HCPCS: 36415; 76700; 80048; 80053; 80061; 80076; 80320; 82140; 83735; 84100; 84439; 84443; 84484; 85025; 93306; 93970; 97116; 97162; 97166; 99285; C1893; C9113; J1650; J2060; J2405; J3411; J3490; J7070; Q0162; G0480

== ENCOUNTER 2022-08-03 15:48 | Emergency (ER) | payer MEDICAID, OTHER ==
[~2022-08-03] VITALS: Ht 172.7 cm; Wt 73.0 kg
[~2022-08-03 15:48] MED LIST changes: -GABA-290 MT; -GABA-533 MT; -TRAM150C25 MT
[2022-08-03 15:52] VITALS: BP 127/90
[2022-08-03] MEDS ORDERED: L25 MT (16:47)
[2022-08-03] MEDS ORDERED: ONDA4TAB50 MT (16:48)
[2022-08-03] MEDS ORDERED: ONDANSETRON 4MG ODT PO ONE (17:00)
== END 2022-08-03 17:32 | disposition home or self-care (01) ==
LOC: ER 15:48
DX: F10.129 Alcohol abuse with intoxication, unspecified (principal); I10 Essential (primary) hypertension; Z79.899 Other long term (current) drug therapy; Z86.59 Personal history of other mental and behavioral disorders; Y90.9 Presence of alcohol in blood, level not specified
CPT/HCPCS: 99283; Z7610

== ENCOUNTER 2022-08-24 14:36 | Emergency (ER) | payer MEDICAID ==
[~2022-08-24] VITALS: Ht 175.3 cm; Wt 80.0 kg
[~2022-08-24 14:36] MED LIST changes: +ONDA4TAB50 MT
[2022-08-24 14:41] VITALS: BP 140/92
[2022-08-24 19:06] LABS: EOSINOPHILS % 2.8 % (0.0-5.0); HEMATOCRIT. 41.1 % (42.0-52.0); HEMOGLOBIN. 13.5 g/dL (14.0-18.0); LYMPHOCYTES % 46.2 % (20.0-50.0); MEAN CORPUSCULAR HEMOGLOBIN 31.8 pg (28.0-32.0); MEAN CORPUSCULAR VOLUME 96.6 fL (80.0-94.0); RED BLOOD CELL COUNT 4.25 mill/uL (4.7-6.1); RED CELL DISTRIBUTION WIDTH 15.6 % (11.6-14.6)
[2022-08-24 19:14] LABS: CHLORIDE 108 mEq/L (98-107)
[2022-08-24 19:27] LABS: ETHANOL BLOOD 407 mg/dL
[2022-08-24 20:15] LABS: MEAN PLATELET VOLUME 7.8 fl (7.4-10.4); PLATELET 179 x1000/uL (130-400)
== END 2022-08-24 22:31 | disposition home or self-care (01) ==
LOC: ER 14:40
DX: F10.229 Alcohol dependence with intoxication, unspecified (principal); Y90.8 Blood alcohol level of 240 mg/100 ml or more; I10 Essential (primary) hypertension; Z79.899 Other long term (current) drug therapy
CPT/HCPCS: 36415; 80053; 80320; 85025; 99283; Z7610; G0480

== ENCOUNTER 2022-08-31 18:51 | Emergency (ER) | payer MEDICAID ==
[~2022-08-31] VITALS: Ht 170.2 cm; Wt 72.0 kg
[2022-08-31 19:06] VITALS: BP 137/55
== END 2022-09-01 08:05 | disposition left against medical advice (07) ==
LOC: ER 18:55
DX: Z53.21 Procedure and treatment not carried out due to patient leaving prior to being seen by health care provider (principal)
CPT/HCPCS: 99283

== ENCOUNTER 2022-09-03 19:22 | Emergency (ER) | payer MEDICAID ==
[~2022-09-03] VITALS: Ht 170.2 cm; Wt 85.0 kg
[2022-09-03 19:37] VITALS: BP 138/94
[2022-09-03] MEDS ORDERED: ONDANSETRON 4MG ODT PO NR (22:38)
[2022-09-03] MEDS ORDERED: CHLORDIAZEPOXIDE 5 MG CAPSULE PO NR (22:45)
[2022-09-03] MEDS ORDERED: ACETAMINOPHEN 325MG TABLET PO NR (22:50)
[2022-09-03] MEDS ORDERED: GABA-532 PO (23:36)
[2022-09-03] MEDS ORDERED: ONDA4TAB50 PO (23:36)
[2022-09-03] MEDS ORDERED: GABA-532 MT (23:36)
[2022-09-03] MEDS ORDERED: L25 MT (23:36)
[2022-09-04] MEDS ORDERED: ONDA4TAB11 PO (11:29)
[2022-09-04] MEDS ORDERED: L25 MT (11:29)
== END 2022-09-04 | disposition home or self-care (01) ==
LOC: ER 19:22
DX: M54.40 Lumbago with sciatica, unspecified side (principal); F10.10 Alcohol abuse, uncomplicated; E11.9 Type 2 diabetes mellitus without complications; I10 Essential (primary) hypertension; G40.909 Epilepsy, unspecified, not intractable, without status epilepticus; Y90.9 Presence of alcohol in blood, level not specified
CPT/HCPCS: 99284; Q0162

== ENCOUNTER 2022-09-04 03:24 | Emergency (ER) | payer MEDICAID, OTHER ==
[~2022-09-04] VITALS: Ht 172.7 cm; Wt 68.0 kg
[~2022-09-04 03:24] MED LIST changes: +GABA-532 PO
[2022-09-04 04:45] LABS: CHLORIDE 106 mEq/L (98-107)
[2022-09-04 05:19] LABS: BASOPHILS % 3.3 % (0.0-2.0); EOSINOPHILS % 1.4 % (0.0-5.0); HEMATOCRIT. 43.6 % (42.0-52.0); LYMPHOCYTES % 55.1 % (20.0-50.0); MEAN CORPUSCULAR HEMOGLOBIN 31.5 pg (28.0-32.0); MEAN CORPUSCULAR VOLUME 98.2 fL (80.0-94.0); MEAN PLATELET VOLUME 8.5 fl (7.4-10.4); NEUTROPHILS % 29.2 % (40.0-76.0); RED BLOOD CELL COUNT 4.44 mill/uL (4.7-6.1); RED CELL DISTRIBUTION WIDTH 15.7 % (11.6-14.6)
[2022-09-04 05:21] LABS: ETHANOL BLOOD 470 mg/dL; PLATELET 113 x1000/uL (130-400)
[2022-09-04 10:00] VITALS: BP 150/75
[2022-09-04] MEDS ORDERED: ONDA4TAB11 PO (11:29)
[2022-09-04] MEDS ORDERED: L25 MT (11:29)
== END 2022-09-04 12:09 | disposition home or self-care (01) ==
LOC: ER 03:24
DX: S09.8XXA Other specified injuries of head, initial encounter (principal); F10.229 Alcohol dependence with intoxication, unspecified; E87.6 Hypokalemia; E11.9 Type 2 diabetes mellitus without complications; I10 Essential (primary) hypertension; G40.909 Epilepsy, unspecified, not intractable, without status epilepticus; Y90.8 Blood alcohol level of 240 mg/100 ml or more; W01.0XXA Fall on same level from slipping, tripping and stumbling without subsequent striking against object, initial encounter; Y93.89 Activity, other specified; Y92.238 Other place in hospital as the place of occurrence of the external cause; Y99.8 Other external cause status
CPT/HCPCS: 36415; 71045; 80053; 80320; 85025; 99285; G0480

== ENCOUNTER 2022-10-04 13:13 | Emergency (ER) | payer MEDICAID ==
[~2022-10-04] VITALS: Ht 172.7 cm; Wt 82.0 kg
[~2022-10-04 13:13] MED LIST changes: -GABA-532 PO; +ONDA4TAB11 PO
[2022-10-04 13:23] VITALS: BP 121/78
[2022-10-04] MEDS ORDERED: ONDANSETRON 4MG ODT PO ONE (13:45)
[2022-10-04] MEDS ORDERED: SODIUM CHLORIDE 0.9% 1,000 ML IV ONE (13:45)
[2022-10-04 14:48] LABS: CHLORIDE 109 mEq/L (98-107)
[2022-10-04 14:56] LABS: HEMATOCRIT. 40.2 % (42.0-52.0); HEMOGLOBIN. 13.3 g/dL (14.0-18.0); MEAN CORPUSCULAR HEMOGLOBIN 31.8 pg (28.0-32.0); RED BLOOD CELL COUNT 4.18 mill/uL (4.7-6.1); RED CELL DISTRIBUTION WIDTH 15.2 % (11.6-14.6)
[2022-10-04 15:08] LABS: ETHANOL BLOOD 375 mg/dL
[2022-10-04 15:33] LABS: MEAN PLATELET VOLUME 9.4 fl (7.4-10.4); PLATELET 162 x1000/uL (130-400); PLATELET ESTIMATE NORMAL
[2022-10-04] MEDS ORDERED: POTASSIUM CHLORIDE 20MEQ TABLET SR PO NR (15:45)
[2022-10-04] MEDS ORDERED: IBUP-2029 MT (17:49)
[2022-10-04] MEDS ORDERED: LORA-250 MT (17:49)
== END 2022-10-04 18:31 | disposition home or self-care (01) ==
LOC: ER 13:13
DX: F10.229 Alcohol dependence with intoxication, unspecified (principal); K70.10 Alcoholic hepatitis without ascites; Y90.8 Blood alcohol level of 240 mg/100 ml or more; E87.6 Hypokalemia
CPT/HCPCS: 36415; 80053; 80320; 85025; 96360; 99283; J7030; Q0162; Z7610; G0480

== ENCOUNTER 2022-10-04 23:17 | Emergency (ER) | payer MEDICAID ==
[~2022-10-04] VITALS: Ht 172.7 cm; Wt 75.0 kg
[~2022-10-04 23:17] MED LIST changes: +LORA-250 MT
[2022-10-04 23:23] VITALS: BP 138/100
== END 2022-10-05 03:33 | disposition left against medical advice (07) ==
LOC: ER 23:17
DX: Z53.21 Procedure and treatment not carried out due to patient leaving prior to being seen by health care provider (principal)
CPT/HCPCS: 99281

== ENCOUNTER 2022-12-31 22:03 | Emergency (ER) | payer MEDICAID, OTHER ==
[~2022-12-31] VITALS: Ht 175.3 cm; Wt 79.4 kg
[2022-12-31 22:08] VITALS: BP 150/90; PULSE 93; RESP 20; TEMP 98.5; O2SAT 98
[2022-12-31 23:25] LABS: CHLORIDE 110 mEq/L (98-107); HEMATOCRIT. 41.5 % (42.0-52.0); HEMOGLOBIN. 13.8 g/dL (14.0-18.0); MEAN CORPUSCULAR HEMOGLOBIN 31.9 pg (28.0-32.0); MEAN CORPUSCULAR VOLUME 95.8 fL (80.0-94.0); MEAN PLATELET VOLUME 7.5 fl (7.4-10.4); PLATELET 190 x1000/uL (130-400); RED BLOOD CELL COUNT 4.33 mill/uL (4.7-6.1); RED CELL DISTRIBUTION WIDTH 14.8 % (11.6-14.6)
[2022-12-31 23:36] LABS: ETHANOL BLOOD 358 mg/dL (-10)
[2023-01-01 00:17] LABS: PLATELET ESTIMATE NORMAL
== END 2023-01-01 05:40 | disposition home or self-care (01) ==
LOC: ER 22:03
DX: T51.0X1A Toxic effect of ethanol, accidental (unintentional), initial encounter (principal); I10 Essential (primary) hypertension; E11.9 Type 2 diabetes mellitus without complications; Z79.899 Other long term (current) drug therapy; Z86.59 Personal history of other mental and behavioral disorders; Y92.9 Unspecified place or not applicable
CPT/HCPCS: 36415; 80053; 80320; 85025; 99283; G0480

== ENCOUNTER 2023-01-01 13:47 | Emergency (ER) | payer MEDICAID, OTHER ==
[~2023-01-01] VITALS: Ht 182.9 cm; Wt 82.0 kg
[2023-01-01 13:56] VITALS: O2SAT 97
[2023-01-01] MEDS ORDERED: SODIUM CHLORIDE 0.9% 1,000 ML IV ONE (14:30)
[2023-01-01 14:54] LABS: HEMATOCRIT. 41.7 % (42.0-52.0); HEMOGLOBIN. 14.2 g/dL (14.0-18.0); MEAN CORPUSCULAR HEMOGLOBIN 32.1 pg (28.0-32.0); MEAN CORPUSCULAR VOLUME 94.4 fL (80.0-94.0); MEAN PLATELET VOLUME 7.2 fl (7.4-10.4); PLATELET 199 x1000/uL (130-400); RED BLOOD CELL COUNT 4.42 mill/uL (4.7-6.1); RED CELL DISTRIBUTION WIDTH 14.8 % (11.6-14.6)
[2023-01-01 15:04] LABS: CHLORIDE 109 mEq/L (98-107)
[2023-01-01 15:15] LABS: ETHANOL BLOOD 430 mg/dL (-10)
[2023-01-01 15:21] LABS: *AMPHETAMINES SCREEN URINE NEGATIVE (NEGATIVE); *BARBITURATES SCREEN URINE NEGATIVE (NEGATIVE); *BENZODIAZEPINES SCREEN URINE PRESUMTIVE POSITIVE (NEGATIVE); *COCAINE SCREEN URINE NEGATIVE (NEGATIVE); CANNABINOID URINE SCREEN NEGATIVE (NEGATIVE); METHADONE URINE SCREEN NEGATIVE (NEGATIVE); OPIATES URINE SCREEN NEGATIVE (NEGATIVE); PHENCYCLIDINE URINE SCREEN NEGATIVE (NEGATIVE)
[2023-01-01 16:05] LABS: PLATELET ESTIMATE NORMAL
[2023-01-01 20:24] VITALS: BP 133/100; PULSE 93; RESP 21; TEMP 98.2
== END 2023-01-01 20:38 | disposition home or self-care (01) ==
LOC: ER 13:47
DX: F10.229 Alcohol dependence with intoxication, unspecified (principal); Y90.8 Blood alcohol level of 240 mg/100 ml or more; E11.9 Type 2 diabetes mellitus without complications; I10 Essential (primary) hypertension; Z79.899 Other long term (current) drug therapy
CPT/HCPCS: 36415; 71045; 80053; 80305; 80307; 80320; 80329; 85025; 93005; 96360; 99285; J7030; Z7610; G0480

== ENCOUNTER 2023-01-02 03:26 | Emergency (ER) | payer MEDICAID, OTHER ==
[~2023-01-02] VITALS: Ht 175.3 cm; Wt 73.0 kg
[2023-01-02 03:30] VITALS: BP 162/110; PULSE 105; RESP 20; TEMP 97.9; O2SAT 98
== END 2023-01-02 06:13 | disposition home or self-care (01) ==
LOC: ER 03:26
DX: F10.129 Alcohol abuse with intoxication, unspecified (principal); E11.9 Type 2 diabetes mellitus without complications; I10 Essential (primary) hypertension; Z79.899 Other long term (current) drug therapy; Z86.59 Personal history of other mental and behavioral disorders; Y90.9 Presence of alcohol in blood, level not specified
CPT/HCPCS: 99283

== ENCOUNTER 2023-02-26 23:41 | Emergency (ER) | payer MEDICAID ==
[~2023-02-26] VITALS: Ht 172.7 cm; Wt 76.0 kg
[2023-02-26 23:45] VITALS: BP 150/74; PULSE 96; RESP 18; TEMP 98.7; O2SAT 100
[2023-02-27] MEDS ORDERED: SODIUM CHLORIDE 0.9% 1,000 ML IV ONE
[2023-02-27 00:16] LABS: HEMATOCRIT. 44.4 % (42.0-52.0); MEAN CORPUSCULAR HEMOGLOBIN 29.6 pg (28.0-32.0); MEAN CORPUSCULAR HGB CONC 31.5 g/dL (31.0-37.0); MEAN CORPUSCULAR VOLUME 93.9 fL (80.0-94.0); MEAN PLATELET VOLUME 7.8 fl (7.4-10.4); PLATELET 167 x1000/uL (130-400); RED BLOOD CELL COUNT 4.72 mill/uL (4.7-6.1); RED CELL DISTRIBUTION WIDTH 15.1 % (11.6-14.6); WHITE BLOOD COUNT 4.8 x1000/uL (4.5-11.0)
[2023-02-27 00:24] LABS: CHLORIDE 109 mEq/L (98-107); INDEX HEMOLYSI 1 (1-3); INDEX ICTERIC 1 (1-4); INDEX LIPEMIC 1 (1-3); POTASSIUM 3.4 mEq/L (3.5-5.1); SODIUM 143 mEq/L (136-145)
[2023-02-27 00:34] LABS: ALANINE AMINOTRANSFERASE 50 IU/L (13-61); ALBUMIN 3.5 g/dL (3.4-5.0); ASPARTATE AMINOTRANSFERASE 112 IU/L (15-37); BILIRUBIN TOTAL 0.3 mg/dL (0.1-1.0); CALCIUM 8.2 mg/dL (8.5-10.1); CARBON DIOXIDE 25 mEq/L (21-32); CREATININE 0.5 mg/dL (0.6-1.3); GLUCOSE 99 mg/dL (70-105); PROTEIN TOTAL 8.1 g/dL (6.0-8.3); UREA NITROGEN BLOOD 6 mg/dL (7-21)
[2023-02-27 00:40] LABS: DIFFERENTIAL COMMENT 1
[2023-02-27 00:42] LABS: ETHANOL BLOOD 496 mg/dL (-10)
[2023-02-27 01:40] LABS: PLATELET ESTIMATE NORMAL
== END 2023-02-27 07:36 | disposition home or self-care (01) ==
LOC: ER 23:47
DX: F10.229 Alcohol dependence with intoxication, unspecified (principal); E11.9 Type 2 diabetes mellitus without complications; I10 Essential (primary) hypertension; Z79.899 Other long term (current) drug therapy; Y90.8 Blood alcohol level of 240 mg/100 ml or more
CPT/HCPCS: 80053; 80320; 85025; 36415; 99283; J7030; Z7610 ×2; G0480

== ENCOUNTER 2023-03-04 12:09 | Emergency (ER) | payer MEDICAID ==
[~2023-03-04] VITALS: Ht 175.3 cm; Wt 63.0 kg
[2023-03-04 13:06] VITALS: BP 130/90; PULSE 75; RESP 16; TEMP 97.6; O2SAT 95
[2023-03-04 13:47] LABS: CHLORIDE 106 mEq/L (98-107); INDEX HEMOLYSI 2 (1-3); INDEX ICTERIC 1 (1-4); INDEX LIPEMIC 1 (1-3); POTASSIUM 3.2 mEq/L (3.5-5.1); SODIUM 142 mEq/L (136-145)
[2023-03-04 14:03] LABS: BASOPHILS % 2.5 % (0.0-2.0); EOSINOPHILS % 1.8 % (0.0-5.0); HEMATOCRIT. 40.9 % (42.0-52.0); HEMOGLOBIN. 13.4 g/dL (14.0-18.0); LYMPHOCYTES % 22.4 % (20.0-50.0); MEAN CORPUSCULAR HEMOGLOBIN 30.2 pg (28.0-32.0); MEAN CORPUSCULAR HGB CONC 32.8 g/dL (31.0-37.0); MEAN PLATELET VOLUME 8.3 fl (7.4-10.4); MONOCYTES % 13.9 % (2.0-8.0); NEUTROPHILS % 59.4 % (40.0-76.0); PLATELET 133 x1000/uL (130-400); RED BLOOD CELL COUNT 4.45 mill/uL (4.7-6.1); RED CELL DISTRIBUTION WIDTH 15.2 % (11.6-14.6); WHITE BLOOD COUNT 5.1 x1000/uL (4.5-11.0)
[2023-03-04 14:30] LABS: ALANINE AMINOTRANSFERASE 68 IU/L (13-61); BILIRUBIN TOTAL 0.3 mg/dL (0.1-1.0); CREATININE 0.5 mg/dL (0.6-1.3); PROTEIN TOTAL 7.7 g/dL (6.0-8.3)
[2023-03-04] MEDS ORDERED: ONDANSETRON 4MG ODT PO ONE (15:15)
[2023-03-04] MEDS ORDERED: POTASSIUM CHLORIDE 20MEQ TABLET SR PO ONE (15:15)
[2023-03-04 15:46] LABS: ALBUMIN 3.5 g/dL (3.4-5.0); ASPARTATE AMINOTRANSFERASE 189 IU/L (15-37); CALCIUM 8.8 mg/dL (8.5-10.1); CARBON DIOXIDE 24 mEq/L (21-32); ETHANOL BLOOD 393 mg/dL (-10); GLUCOSE 103 mg/dL (70-105); UREA NITROGEN BLOOD 6 mg/dL (7-21)
== END 2023-03-04 18:29 | disposition home or self-care (01) ==
LOC: ER 12:09
DX: F10.129 Alcohol abuse with intoxication, unspecified (principal); E11.9 Type 2 diabetes mellitus without complications; I10 Essential (primary) hypertension; Z79.899 Other long term (current) drug therapy; Z86.59 Personal history of other mental and behavioral disorders; Y90.8 Blood alcohol level of 240 mg/100 ml or more
CPT/HCPCS: 80053; 80320; 83690; 85025; 36415; 99283; Q0162; G0480

== ENCOUNTER 2023-05-02 14:22 | Emergency (ER) | payer MEDICAID ==
[~2023-05-02] VITALS: Ht 175.3 cm; Wt 60.0 kg
[2023-05-02 14:28] VITALS: BP 126/78; PULSE 99; RESP 16; TEMP 98; O2SAT 96
[2023-05-02] MEDS ORDERED: TETRACAINE 0.5% OPHTH DROPS 4ML BOTHEYE ONE (14:45)
[2023-05-02] MEDS ORDERED: FLUORESCEIN SODIUM 1MG/STRIP BOTHEYE ONE (14:45)
== END 2023-05-02 15:45 | disposition left against medical advice (07) ==
LOC: ER 14:25
DX: S00.12XA Contusion of left eyelid and periocular area, initial encounter (principal); Z53.21 Procedure and treatment not carried out due to patient leaving prior to being seen by health care provider; X58.XXXA Exposure to other specified factors, initial encounter; Y93.89 Activity, other specified; Y92.89 Other specified places as the place of occurrence of the external cause; Y99.8 Other external cause status
CPT/HCPCS: 99281

== ENCOUNTER 2023-05-21 14:43 | Emergency (ER) | payer MEDICAID, OTHER ==
[~2023-05-21] VITALS: Ht 177.8 cm; Wt 75.0 kg
[~2023-05-21 14:43] MED LIST changes: +AMLO5TAB88 PO; -ATEN50TA MT; -CYCL5TAB MT; +HYDR-4001 MT; -KEPP500 PO; -L25 MT; -LISI20TA31 PO; -LORA-250 MT; -MENT4ADH6 TP; -ONDA4TAB11 PO; -ONDA4TAB50 MT
[2023-05-21 14:53] VITALS: BP 105/65; PULSE 90; RESP 18; O2SAT 99
[2023-05-21] MEDS ORDERED: SODIUM CHLORIDE 0.9% 1,000 ML IV ONE (15:15)
[2023-05-21 15:45] VITALS: TEMP 98.3
[2023-05-21] MEDS ORDERED: ACETAMINOPHEN 325MG TABLET PO ONE (15:45)
[2023-05-21 16:09] LABS: CLARITY URINE CLEAR (CLEAR); COLOR URINE YELLOW (YELLOW); GLUCOSE URINE NEGATIVE (NEGATIVE); KETONES URINE NEGATIVE (NEGATIVE); LEUKOCYTE ESTERASE URINE NEGATIVE (NEGATIVE); NITRITE URINE NEGATIVE (NEGATIVE); OCCULT BLOOD URINE NEGATIVE (NEGATIVE); PROTEIN URINE NEGATIVE (NEGATIVE); SPECIFIC GRAVITY URINE 1.006 (1.005-1.030); UROBILINOGEN URINE 0.2 E.U./dL (0.2-1.0)
[2023-05-21 16:36] LABS: BASOPHILS % 1.2 % (0.0-2.0); HEMATOCRIT. 38.3 % (42.0-52.0); HEMOGLOBIN. 12.5 g/dL (14.0-18.0); LYMPHOCYTES % 29.6 % (20.0-50.0); MEAN CORPUSCULAR HEMOGLOBIN 30.3 pg (28.0-32.0); MEAN CORPUSCULAR HGB CONC 32.6 g/dL (31.0-37.0); MEAN PLATELET VOLUME 8.1 fl (7.4-10.4); NEUTROPHILS % 57.2 % (40.0-76.0); PLATELET 361 x1000/uL (130-400); RED BLOOD CELL COUNT 4.12 mill/uL (4.7-6.1); RED CELL DISTRIBUTION WIDTH 17.4 % (11.6-14.6); WHITE BLOOD COUNT 6.5 x1000/uL (4.5-11.0)
[2023-05-21 16:47] LABS: PROTHROMBIN TIME 10.4 sec (9.6-11.0)
[2023-05-21 17:04] LABS: CHLORIDE 110 mEq/L (98-107); INDEX HEMOLYSI 1 (1-3); INDEX ICTERIC 1 (1-4); INDEX LIPEMIC 1 (1-3); POTASSIUM 3.4 mEq/L (3.5-5.1); SODIUM 143 mEq/L (136-145)
[2023-05-21 17:14] LABS: ALANINE AMINOTRANSFERASE 104 IU/L (13-61); ALBUMIN 3.2 g/dL (3.4-5.0); ASPARTATE AMINOTRANSFERASE 88 IU/L (15-37); BILIRUBIN TOTAL 0.3 mg/dL (0.1-1.0); CALCIUM 8.5 mg/dL (8.5-10.1); CARBON DIOXIDE 26 mEq/L (21-32); CREATININE 0.4 mg/dL (0.6-1.3); ETHANOL BLOOD 265 mg/dL (<10); GLUCOSE 123 mg/dL (70-105); PROTEIN TOTAL 7.4 g/dL (6.0-8.3); UREA NITROGEN BLOOD 8 mg/dL (7-21)
== END 2023-05-21 19:06 | disposition left against medical advice (07) ==
LOC: ER 14:43
DX: M79.10 Myalgia, unspecified site (principal); E11.9 Type 2 diabetes mellitus without complications; I10 Essential (primary) hypertension; F10.229 Alcohol dependence with intoxication, unspecified; Z79.899 Other long term (current) drug therapy; Y90.8 Blood alcohol level of 240 mg/100 ml or more
CPT/HCPCS: 80053; 81003; 80320; 83690; 85025; 85610; 36415; 70450; 99291; J7030; G0480

== ENCOUNTER 2023-05-24 21:26 | Emergency (ER) | payer MEDICAID ==
[~2023-05-24] VITALS: Ht 175.3 cm; Wt 90.0 kg
[2023-05-24 21:30] VITALS: BP 133/91; PULSE 113; RESP 20; TEMP 98.4; O2SAT 97
[2023-05-25] MEDS ORDERED: POLY17PO3 MT (12:46)
== END 2023-05-25 08:51 | disposition left against medical advice (07) ==
LOC: ER 21:26
DX: Z76.1 Encounter for health supervision and care of foundling (principal); Z53.21 Procedure and treatment not carried out due to patient leaving prior to being seen by health care provider
CPT/HCPCS: 99281

== ENCOUNTER 2023-05-25 09:15 | Emergency (ER) | payer MEDICAID ==
[~2023-05-25] VITALS: Ht 172.7 cm; Wt 68.0 kg
[2023-05-25 09:20] VITALS: BP 111/74; PULSE 96; RESP 20; TEMP 98.7; O2SAT 98
[2023-05-25] MEDS ORDERED: POLYETHYLENE GLYCOL 3350 (17GM) 1 DOSE PACK PO ONE (12:15)
[2023-05-25] MEDS ORDERED: POLY17PO3 MT (12:46)
== END 2023-05-25 13:24 | disposition home or self-care (01) ==
LOC: ER 09:15
DX: K59.00 Constipation, unspecified (principal); E11.9 Type 2 diabetes mellitus without complications; I10 Essential (primary) hypertension
CPT/HCPCS: 99282; Z7610

== ENCOUNTER 2023-07-08 16:48 | Emergency (ER) | payer MEDICAID, OTHER ==
[~2023-07-08] VITALS: Ht 172.7 cm; Wt 78.0 kg
[~2023-07-08 16:48] MED LIST changes: +POLY17PO3 MT
[2023-07-08 17:29] VITALS: BP 121/80; PULSE 78; RESP 16; TEMP 98.8; O2SAT 100
[2023-07-08] MEDS ORDERED: ACETAMINOPHEN 325MG TABLET PO ONE (21:30)
[2023-07-09] MEDS ORDERED: ONDA4TAB50 PO (00:22)
[2023-07-09] MEDS ORDERED: AMLO5TAB88 PO (00:22)
[2023-07-09] MEDS ORDERED: ACET-2708 MT (00:23)
== END 2023-07-09 01:35 | disposition home or self-care (01) ==
LOC: ER 16:48
DX: R51.9 Headache, unspecified (principal); I10 Essential (primary) hypertension; E11.9 Type 2 diabetes mellitus without complications; Z86.59 Personal history of other mental and behavioral disorders
CPT/HCPCS: 99284

== ENCOUNTER 2023-08-30 22:44 | Emergency (ER) | payer MEDICAID ==
[~2023-08-30] VITALS: Ht 170.2 cm; Wt 68.0 kg
[~2023-08-30 22:44] MED LIST changes: +ACET-2708 MT
[2023-08-30 22:51] VITALS: BP 113/76; PULSE 94; RESP 18; TEMP 98.5; O2SAT 98
[2023-08-31 00:38] LABS: CLARITY URINE CLEAR (CLEAR); COLOR URINE YELLOW (YELLOW); GLUCOSE URINE NEGATIVE (NEGATIVE); KETONES URINE NEGATIVE (NEGATIVE); LEUKOCYTE ESTERASE URINE NEGATIVE (NEGATIVE); NITRITE URINE NEGATIVE (NEGATIVE); OCCULT BLOOD URINE NEGATIVE (NEGATIVE); PH URINE 6.5 (4.5-8.0); PROTEIN URINE NEGATIVE (NEGATIVE); SPECIFIC GRAVITY URINE 1.006 (1.005-1.030); UROBILINOGEN URINE 0.2 E.U./dL (0.2-1.0)
[2023-08-31] MEDS ORDERED: LORA-249 MT (02:26)
[2023-08-31] MEDS ORDERED: ONDA4TAB50 MT (02:26)
[2023-08-31] MEDS: ACETAMINOPHEN 325MG TABLET PO ONE (02:36)
== END 2023-08-31 02:46 | disposition home or self-care (01) ==
LOC: ER 22:44
DX: G89.29 Other chronic pain (principal); M54.59 Other low back pain; R51.9 Headache, unspecified; E11.9 Type 2 diabetes mellitus without complications; I10 Essential (primary) hypertension; R56.9 Unspecified convulsions; F10.20 Alcohol dependence, uncomplicated; Y90.9 Presence of alcohol in blood, level not specified
CPT/HCPCS: 81003; 99283

== ENCOUNTER 2023-09-05 16:33 | Emergency (ER) | payer MEDICAID ==
[~2023-09-05] VITALS: Ht 172.7 cm; Wt 68.0 kg
[~2023-09-05 16:33] MED LIST changes: +LORA-249 MT; +ONDA4TAB50 MT
[2023-09-05 16:46] VITALS: BP 110/57; PULSE 103; RESP 18; TEMP 98.5; O2SAT 98
== END 2023-09-05 21:30 | disposition home or self-care (01) ==
LOC: ER 16:33
DX: G89.29 Other chronic pain (principal); M54.40 Lumbago with sciatica, unspecified side; F10.20 Alcohol dependence, uncomplicated; E11.9 Type 2 diabetes mellitus without complications; I10 Essential (primary) hypertension; Z79.899 Other long term (current) drug therapy
CPT/HCPCS: 99281

== ENCOUNTER 2023-09-22 15:38 | Emergency (ER) | payer MEDICAID ==
[~2023-09-22] VITALS: Ht 175.3 cm; Wt 82.0 kg
[2023-09-22 15:48] VITALS: BP 132/85; PULSE 109; RESP 18; TEMP 98.1; O2SAT 99
== END 2023-09-22 17:33 | disposition left against medical advice (07) ==
LOC: ER 15:38
DX: M79.605 Pain in left leg (principal); Z53.21 Procedure and treatment not carried out due to patient leaving prior to being seen by health care provider
CPT/HCPCS: 99281

== ENCOUNTER 2023-09-28 21:31 | Emergency (ER) | payer MEDICAID, OTHER ==
[~2023-09-28] VITALS: Ht 172.7 cm; Wt 90.7 kg
[2023-09-28 21:43] VITALS: O2SAT 98
[2023-09-28] MEDS: SODIUM CHLORIDE 0.9% 1,000 ML IV ONE (22:45)
[2023-09-28 23:48] LABS: BASOPHILS % 2.6 % (0.0-2.0); EOSINOPHILS % 3.4 % (0.0-5.0); HEMATOCRIT. 37.4 % (42.0-52.0); HEMOGLOBIN. 12.2 g/dL (14.0-18.0); LYMPHOCYTES % 45.8 % (20.0-50.0); MEAN CORPUSCULAR HEMOGLOBIN 29.4 pg (28.0-32.0); MEAN CORPUSCULAR HGB CONC 32.6 g/dL (31.0-37.0); MEAN CORPUSCULAR VOLUME 90.4 fL (80.0-94.0); MEAN PLATELET VOLUME 7.3 fl (7.4-10.4); MONOCYTES % 9.1 % (2.0-8.0); NEUTROPHILS % 39.1 % (40.0-76.0); PLATELET 382 x1000/uL (130-400); RED BLOOD CELL COUNT 4.14 mill/uL (4.7-6.1); RED CELL DISTRIBUTION WIDTH 16.5 % (11.6-14.6); WHITE BLOOD COUNT 5.6 x1000/uL (4.5-11.0)
[2023-09-29 00:14] LABS: AMMONIA < 17 uMol/L (<32)
[2023-09-29 00:22] LABS: ACETAMINOPHEN < 2 ug/mL (10-30); ALANINE AMINOTRANSFERASE 35 IU/L (10-49); ALBUMIN 4.2 g/dL (3.2-4.8); ASPARTATE AMINOTRANSFERASE 77 IU/L (<34); BILIRUBIN TOTAL 0.3 mg/dL (0.1-1.0); CALCIUM 8.8 mg/dL (8.7-10.4); CARBON DIOXIDE 25 mEq/L (21-32); CHLORIDE 111 mEq/L (98-107); CREATININE 0.6 mg/dL (0.6-1.3); ETHANOL BLOOD 337 mg/dL (<10); GLUCOSE 90 mg/dL (70-105); POTASSIUM 3.4 mEq/L (3.5-5.1); PROTEIN TOTAL 7.8 g/dL (6.0-8.3); SODIUM 144 mEq/L (136-145); THYROID STIMULATING HORMONE 1.39 uIU/mL (0.55-4.78); UREA NITROGEN BLOOD 8 mg/dL (9-23)
[2023-09-29 03:05] VITALS: TEMP 98.2
[2023-09-29 04:06] VITALS: BP 130/69; PULSE 98; RESP 18
[2023-09-29] MEDS: IBUPROFEN 400MG TABLET PO NR (04:06)
[2023-09-29] MEDS ORDERED: ONDANSETRON HCL 4MG/2ML INJ IV ONE (05:30)
== END 2023-09-29 07:14 | disposition home or self-care (01) ==
LOC: ER 21:31
DX: F10.229 Alcohol dependence with intoxication, unspecified (principal); Z79.899 Other long term (current) drug therapy; Y90.7 Blood alcohol level of 200-239 mg/100 ml
CPT/HCPCS: 80053; 80307; 80320; 82140; 83690; 84443; 85025; 36415; 96360; 99285; 82962; J7030; Z7610; G0480

== ENCOUNTER 2023-10-03 18:51 | Emergency (ER) | payer OTHER ==
[~2023-10-03] VITALS: Ht 172.7 cm; Wt 77.0 kg
[2023-10-03 18:54] VITALS: BP 129/84; PULSE 78; RESP 18; TEMP 98.7; O2SAT 100
== END 2023-10-03 21:34 | disposition home or self-care (01) ==
LOC: ER 18:51
DX: F10.229 Alcohol dependence with intoxication, unspecified (principal); Z79.899 Other long term (current) drug therapy; Y90.0 Blood alcohol level of less than 20 mg/100 ml
CPT/HCPCS: 99283

== ENCOUNTER 2023-10-15 17:30 | Emergency (ER) | payer OTHER ==
[~2023-10-15] VITALS: Ht 172.7 cm; Wt 73.0 kg
[2023-10-15 17:36] VITALS: TEMP 97.8; O2SAT 100
[2023-10-15] MEDS: LORAZEPAM 2MG/ML INJ IM ONE (21:00)
[2023-10-15] MEDS ORDERED: LORA2TAB95 MT (21:03)
[2023-10-16 01:42] VITALS: BP 132/68; PULSE 80; RESP 18
== END 2023-10-16 02:00 | disposition home or self-care (01) ==
LOC: ER 17:30
DX: F10.239 Alcohol dependence with withdrawal, unspecified (principal); Z79.899 Other long term (current) drug therapy; Y90.0 Blood alcohol level of less than 20 mg/100 ml
CPT/HCPCS: 70450; 96372; 99285; J2060; Z7610

== ENCOUNTER 2023-11-15 19:28 | Inpatient (IN) | payer OTHER ==
[~2023-11-15] VITALS: Ht 172.7 cm; Wt 81.6 kg
[~2023-11-15 19:28] MED LIST changes: +LORA2TAB95 MT
[2023-11-15 19:34] VITALS: O2SAT 98
[2023-11-15 20:24] LABS: HEMATOCRIT. 33.2 % (42.0-52.0); HEMOGLOBIN. 10.8 g/dL (14.0-18.0); MEAN CORPUSCULAR HEMOGLOBIN 28.8 pg (28.0-32.0); MEAN CORPUSCULAR HGB CONC 32.4 g/dL (31.0-37.0); MEAN CORPUSCULAR VOLUME 88.9 fL (80.0-94.0); MEAN PLATELET VOLUME 7.2 fl (7.4-10.4); PLATELET 155 x1000/uL (130-400); RED BLOOD CELL COUNT 3.74 mill/uL (4.7-6.1); RED CELL DISTRIBUTION WIDTH 16.4 % (11.6-14.6); WHITE BLOOD COUNT 4.7 x1000/uL (4.5-11.0)
[2023-11-15 20:27] LABS: CHLORIDE 107 mEq/L (98-107); DIFFERENTIAL COMMENT 1; SODIUM 146 mEq/L (136-145)
[2023-11-15 20:28] LABS: CARBON DIOXIDE 28 mEq/L (21-32)
[2023-11-15 20:29] LABS: CALCIUM 8.9 mg/dL (8.7-10.4)
[2023-11-15 20:33] LABS: CREATININE 0.5 mg/dL (0.6-1.3); GLUCOSE 109 mg/dL (70-105)
[2023-11-15 20:34] LABS: POTASSIUM 2.8 mEq/L (3.5-5.1); UREA NITROGEN BLOOD 5 mg/dL (9-23)
[2023-11-15 20:35] LABS: ALANINE AMINOTRANSFERASE 70 IU/L (10-49); ASPARTATE AMINOTRANSFERASE 169 IU/L (<34)
[2023-11-15 20:36] LABS: BILIRUBIN TOTAL 0.3 mg/dL (0.1-1.0); PROTEIN TOTAL 7.5 g/dL (6.0-8.3)
[2023-11-15 20:40] LABS: PLATELET ESTIMATE NORMAL
[2023-11-15 20:44] LABS: ETHANOL BLOOD 572 mg/dL (<10)
[2023-11-15] MEDS: KCL 20MEQ/100ML PREMIX 100 ML IV SCH (21:45)
[2023-11-15] MEDS: POTASSIUM CHLORIDE 20MEQ TABLET SR PO ONE (22:23)
[2023-11-15] MEDS ORDERED: MAGNESIUM 2 G PREMIX 50 ML IV ONE (23:00)
[2023-11-16] MEDS: MAGNESIUM 2 G PREMIX 50 ML IV NR (02:43)
[2023-11-16] MEDS: KCL 20MEQ/100ML PREMIX 100 ML IV SCH (03:58)
[2023-11-16 08:00] VITALS: BP 130/64; PULSE 96; RESP 20; TEMP 98.4
[2023-11-16] MEDS ORDERED: KEPP500 PO (09:28)
[2023-11-16 10:02] VITALS: BP 130/64; PULSE 96; RESP 20; TEMP 98.4
[2023-11-16] MEDS ORDERED: LORAZEPAM 1MG TABLET PO PRN (11:00)
[2023-11-16] MEDS ORDERED: ONDANSETRON HCL 4MG/2ML INJ IV PRN (11:00)
[2023-11-16] MEDS ORDERED: ACETAMINOPHEN 325MG TABLET PO PRN ×2 (11:00)
[2023-11-16] MEDS ORDERED: CHLORDIAZEPOXIDE 25MG CAPSULE PO SCH (14:00)
== END 2023-11-16 12:00 | disposition left against medical advice (07) | DRG 425 ==
LOC: ER 19:28 → 5WST 11-16 00:28 → 8WST 11-16 08:23
PROVIDERS: ADMIT Internal Medicine; ATTEND Internal Medicine
PROC: 0HQ1XZZ Repair Face Skin, External Approach (ICD-10-PCS; principal; 2023-11-16)
DX: E87.6 Hypokalemia (principal); E83.42 Hypomagnesemia; S01.411A Laceration without foreign body of right cheek and temporomandibular area, initial encounter; F10.229 Alcohol dependence with intoxication, unspecified; Z53.29 Procedure and treatment not carried out because of patient's decision for other reasons; X58.XXXA Exposure to other specified factors, initial encounter; Y93.9 Activity, unspecified; Y92.89 Other specified places as the place of occurrence of the external cause; Y99.8 Other external cause status
CPT/HCPCS: 36415; 70486; 71045; 80053; 80320; 83735; 85025; 99285; J3475; J3480; G0480

== ENCOUNTER 2023-11-27 22:38 | Emergency (ER) | payer OTHER ==
[~2023-11-27] VITALS: Ht 165.1 cm; Wt 70.0 kg
[~2023-11-27 22:38] MED LIST changes: +KEPP500 PO
[2023-11-27 22:44] VITALS: TEMP 98.4; O2SAT 100
[2023-11-28 05:30] VITALS: BP 118/79; PULSE 106; RESP 20
== END 2023-11-28 06:27 | disposition home or self-care (01) ==
LOC: ER 22:38
DX: F10.229 Alcohol dependence with intoxication, unspecified (principal); Z79.899 Other long term (current) drug therapy; Y90.9 Presence of alcohol in blood, level not specified
CPT/HCPCS: 99283

== ENCOUNTER 2023-12-12 12:57 | Emergency (ER) | payer MEDICAID, OTHER ==
[~2023-12-12] VITALS: Ht 175.3 cm; Wt 80.0 kg
[2023-12-12 13:14] VITALS: BP 148/70; PULSE 86; RESP 18; TEMP 99; O2SAT 99
== END 2023-12-12 18:14 | disposition home or self-care (01) ==
LOC: ER 12:57
DX: F10.129 Alcohol abuse with intoxication, unspecified (principal); Y90.9 Presence of alcohol in blood, level not specified
CPT/HCPCS: 82962; 99283